=== PATIENT | male | born 1975 | race African-American/Black ===

== ENCOUNTER 2018-06-17 05:08 | Emergency (ER) | payer OTHER ==
[~2018-06-17] VITALS: Ht 182.9 cm; Wt 117.9 kg
[2018-06-17 05:23] VITALS: Ht 182.9 cm; Wt 117.9 kg
[2018-06-17 06:32] LABS: CALCIUM 8.5 mg/dL (8.5-10.1); CARBON DIOXIDE 24.2 mmol/L (21-32); CHLORIDE SERUM 107 mmol/L (98-107); CREATININE SERUM 1.1 mg/dL (0.7-1.3); GFR1 > 60 mL/min; GLUCOSE SERUM 111 mg/dL (74-106); POTASSIUM SERUM 3.9 mmol/L (3.5-5.1); SODIUM SERUM 142 mmol/L (136-145)
[2018-06-17 06:37] LABS: ALBUMIN 3.7 g/dL (3.4-5.0); ALKALINE PHOSPHATASE 73 U/L (46-116); ALT/SGPT 27 U/L (16-63); AST/SGOT 25 U/L (15-37); BILIRUBIN TOTAL 0.77 mg/dL (0.20-1.00); LIPASE 103 IU/L (73-393)
[2018-06-17 07:05] LABS: BASOPHIL % 0.4 % (0-2); PLATELET COUNT 242 x10^3mcL (130-400); RED CELL DISTRIBUTION WIDTH 13.6 % (11.5-14.5)
[2018-06-17 08:21] LABS: microscopic required? NO
[2018-06-17 09:19] LABS: urine erythrocyte NEGATIVE (NEGATIVE)
[2018-06-17 09:36] VITALS: BP 111/61
== END 2018-06-17 09:36 | disposition home or self-care (01) ==
LOC: ED 05:08
PROVIDERS: Emergency Medicine
DX: R10.9 Unspecified abdominal pain (principal); Z98.890 Other specified postprocedural states
CPT/HCPCS: J1885; J2060; Q0092